=== PATIENT | female | born 1970 | race Caucasian/White ===

== ENCOUNTER 2016-11-05 11:36 | Day surgery (SDC) | payer OTHER ==
[~2016-11-05 11:36] MED LIST: DIAZ5 PO; GABA600T PO; OMEP20TA PO; PERC5TAB12 PO; TRAM50TA PO; ZANA4CAP PO; ZOFR4TAB PO
[2016-11-05] MEDS ORDERED: IODIXANOL 320 MG/ML 50 ML VIAL (for RAD SPEC) ONE (11:37)
[2016-11-05 13:45] VITALS: BP 157/95; PULSE 63; RESP 16; TEMP 98; O2SAT 95
[2016-11-05 14:56] VITALS: BP 157/95; PULSE 63; RESP 20; TEMP 98; O2SAT 95
[2016-11-05] MEDS ORDERED: MILL5PAK (14:56)
[2016-11-05] MEDS ORDERED: BUSP10TA PO (14:56)
[2016-11-05] MEDS ORDERED: LISI-515 PO (14:56)
[2016-11-05] MEDS ORDERED: TRIAMCINOLONE ACETONIDE 40 MG/ML VIAL ONE (15:44)
[2016-11-05] MEDS ORDERED: ROPIVACAINE 1% PF INJ 20 ML AMP ONE (15:44)
[2016-11-05 15:55] VITALS: BP 149/93; PULSE 67; RESP 18; TEMP 98; O2SAT 98
[2016-11-05 16:15] VITALS: BP 138/86; PULSE 67; RESP 18; O2SAT 98
--- NOTE | 2016-11-05 16:26 | RADRPT ---
EXAM DATE/TIME: 11/05/2016 14:11 [facility] COMPARISON: No previous studies available for comparison. INDICATIONS : Meniscus tear. MEDICAL HISTORY : Hypertension. SURGICAL HISTORY : Fusion, cervical. section. Left hip. Partial hysterectomy. Right knee. Breast reduction. ENCOUNTER: Subsequent ACUITY: 1 day PAIN SCORE: 5/10 LOCATION: Right knee TECHNIQUE: Multiplanar, multisequence MRI examination was performed without contrast. FINDINGS: There is no evidence of bone contusion. There is joint space narrowing and marginal osteophyte format ion involving the medial tibiofemoral compartment. The anterior and posterior cruciate ligaments are intact. The medial lateral collateral ligaments are also intact. There is no evidence of meniscal tea r. CONCLUSION: 1. Osteoarthritis involving the medial tibiofemoral compartment. No evidence of meniscal tear Bryant Mcgee MD on November 05, 2016 at 16:13 Board Certified Radiologist. This report was verified electronically.
--- NOTE | 2016-11-05 16:30 | PD.RAD ---
Post Procedure Progress Note Pre Procedure Diagnosis: (1) Ligamentous inflammation Post Procedure Diagnosis: (1) Ligamentous inflammation Procedure Date: Nov 05, 2016 Supervising Radiologist: Bryant Mcgee Plan of Activity See PACS Report for procedural detail/treatment Biopsy Imaging Guidance: Fluoroscopy Side: Right Biopsy Procedure: Other (hip injection for pain) Bryant Mcgee MD Nov 05, 2016 16:30
--- NOTE | 2016-11-29 08:18 | RADRPT ---
EXAM DATE/TIME: 11/05/2016 14:14 [facility] COMPARISON: No previous studies available for comparison. INDICATIONS : Patient with right hip pain in need of steroid injection. MEDICAL HISTORY : HTN, Asthma, GERD, Osteoarthritis, Congenital left hip dysplasia SURGICAL HISTORY : Left hip replacement, C5-C6 surgery ENCOUNTER: Initial ACUITY: >1 year PAIN SCORE: 8/10 LOCATION: Right Hip FLUORO TIME: 0.5 minutes IMAGE SERIES: 1 CONTRAST: 1cc Visipaque (iodixanol) DEVICE: 22 gauge needle was placed into the right hip joint MEDICATIONS: 1.) 1 cc triamcinolone (Kenalog) IA 2.) 4 cc ropivacaine (Naropin) IA 3.) 4 cc Lidocaine IA RESPONSE: Pre procedure pain level was 8/10. Post procedure pain level was 4/10. PROCEDURE : The risks, benefits and alternatives to the procedure were explained and verbal and written consent w as obtained. The site was prepped in sterile fashion. Full sterile technique was used, including ca p, mask, sterile gloves and gown and a large sterile sheet. Hand hygiene and 2% chlorhexidine and/or betadine/alcohol prep was utilized per protocol for cutaneous antisepsis. The skin and subcutaneous tissues were infiltrated with local anesthetic solution. Under sterile conditions and using aseptic technique with fluoroscopic guidance the joint was punctur ed and positive contrast was injected to confirm intra-articular position. Following this, the presc ribed mixture of Kenalog and local anesthetics was injected. The patient tolerated the procedure wel l and there were no complications. CONCLUSION: Uncomplicated therapeutic injection performed under fluoroscopic guidance. Bryant Mcgee MD on November 29, 2016 at 8:16 Board Certified Radiologist. This report was verified electronically.
== END 2016-11-05 16:20 | disposition home or self-care (01) ==
LOC: HROP 11:36 → HRIP 11:45 → HROP 16:20
PROVIDERS: ATTEND Orthopaedic Surgery Sports Medicine
DX: M16.11 Unilateral primary osteoarthritis, right hip (principal); I10 Essential (primary) hypertension
CPT/HCPCS: 73721; J2795; J3301; Q9967; 20610; 77003

== ENCOUNTER 2017-12-17 09:00 | Inpatient (IN) ==
[2018-01-17] MEDS ORDERED: Sodium Chlor 0.9% Inj 250 ML ONE (08:26)
[2018-01-17] MEDS ORDERED: Vancomycin Inj 1,000 MG in Sodium Chlor 0.9% Inj 250 ML IV.SIG SCH (10:00)
[2018-01-17] MEDS ORDERED: SODIUM CHLOR 0.9% IV.SIG SCH (10:00)
[2018-01-17] MEDS ORDERED: ceFAZolin 2 GM Premix Inj 2 GM/50 ML PIGGYBACK IV.SIG SCH (10:00)
[2018-01-17] MEDS ORDERED: TRANEXAMIC ACID IV.SIG SCH (10:00)
[2018-01-17] MEDS ORDERED: BUPIVACAINE P-ARTICULR SCH ×2 (10:00)
[2018-01-17] MEDS ORDERED: [UNRECOGNIZED DRUG - OTHER] P-ARTICULR SCH ×2 (10:00)
[2018-01-17] MEDS ORDERED: BUPIVACAINE LIPOSO 1.3% P-ARTICULR SCH ×2 (10:00)
[2018-01-17] MEDS ORDERED: Bupivacaine/Epi PF 0.25% Inj 20 ML, Bupivacaine Liposo PF 1.3% Inj 20 ML, Sodium Chlor ... P-ARTICULR SCH ×2 (10:00)
[2018-01-17] MEDS ORDERED: EPI P-ARTICULR SCH ×2 (10:00)
[2018-01-17] MEDS ORDERED: Metoprolol Tartrate 25 MG Tablet PO ONE (10:12)
[2018-01-17] MEDS ORDERED: Sodium Chloride 0.9% 2 ML Flush PRN IV.FLUSH (10:14)
[2018-01-17] MEDS ORDERED: Sodium Chlor 0.9% Inj 500 ML IV.SIG SCH (11:00)
[2018-01-17] MEDS ORDERED: Lidocaine PF 1% Inj 5 ML Syringe OTHER ONE (13:19)
[2018-01-17] MEDS ORDERED: Phenylephrine/NS 1000 MCG/10ML Syringe IV.PUSH ONE (13:19)
[2018-01-17] MEDS ORDERED: Succinylcholine Inj 100 MG/5 ML Syringe IV.PUSH ONE (13:19)
[2018-01-17] MEDS ORDERED: Glycopyrrolate Inj 1 MG/5 ML Syringe IV.PUSH ONE (13:19)
[2018-01-17] MEDS ORDERED: diazePAM 5 MG Tablet PO PRN (13:44)
[2018-01-17] MEDS ORDERED: Post-op Orders (for Pharmacy) OTHER STA (13:45)
[2018-01-17] MEDS ORDERED: oxyCODONE/Acetaminophen 10/325 Tablet PO PRN ×2 (13:45)
[2018-01-17] MEDS ORDERED: Bisacodyl 10 MG Supp RECTAL PRN (13:45)
[2018-01-17] MEDS ORDERED: Temazepam 15 MG Capsule PO PRN (13:45)
[2018-01-17] MEDS ORDERED: HYDROmorphone PF Inj 0.5 MG/0.5 ML Syringe IV.PUSH PRN (13:46)
[2018-01-17] MEDS ORDERED: predniSONE 5 MG Tablet PO PRN (15:00)
--- NOTE | 2018-01-17 15:35 | P.OP ---
- Preoperative Diagnosis (1) Osteoarthritis of right hip - Postoperative Diagnosis (1) Osteoarthritis of right hip Date of procedure: 01/17/18 Procedure: Right total hip arthroplasty, direct anterior exposure Anesthesia: GETA Surgeon: Terence Esteves MD Mechanical Engineering Manager: VETO Caldwell Operation and Findings: EBL: 400 cc INDICATION: This patient is a 47-year-old female status post previous left total hip replacement for congenital hip disorder and severe arthritis. She is developing progressive arthritis of the right hip. She has been recalcitrant to conservative care. She presents for surgical NOTE: Vicky Caldwell PA-C was present for the entire surgical procedure as my staffing assistant. In my medical opinion her skill and care was necessary for the proper management of this patient. COMPONENTS: COMPANY: [employer] CUP: [place], 50 mm, 100 series STEM: [place], size 10, standard offset HEAD: Ceramic, 32 mm, +1 Polyethylene liner: 32 mm, neutral PROCEDURE: This patient was brought to the operating room and anesthetized in the supine position. The patient was positioned on the [facility] table with the operative leg extended and the contralateral leg held position. The hip and leg was scrubbed with alcohol followed by Hibiclens followed by ChloraPrep and draped sterilely in the clean air suite. Preoperative fluoroscopic images were utilized. A templating x-ray was obtained and printed to be used during the case. A timeout was done and antibiotics were given within a routine time window. A 4 inch incision was made starting 2 cm distal and 2 cm lateral to the anterior superior iliac spine. The tensor fascia feli fascia was identified and opened longitudinally in line with the incision. Deep retraction allowed good visualization in the interval between the tensor fascia feli and the rectus and this was opened further. The posterior fascia was opened. Crossing vessels were coagulated appropriately. The anterior aspect of the hip capsule was identified. Retractors were placed above and below the capsule. The capsule was opened longitudinally. Stay sutures were utilized creating flaps for the anterior capsule. The femoral neck was cut at the right location and completed with an oscillating saw. The head and neck was removed and taken to the back table. The leg was externally rotated 60 degrees and traction placed on the extremity. The labrum was excised. A portion of the capsule was excised. Visibility was excellent. Retractors were positioned. Starting 6 mm from the final size reamer, we began reaming up to 1 mm from the anticipated size. This was visualized under fluoroscopy. A trial cup was positioned. This also was visualized under fluoroscopy and minor adjustments were made. The final preparation with a 50 mm reamer was utilized. The final cup was positioned in approximately 40 degrees of abduction and 20 degrees of forward flexion. This is visualized under fluoroscopy and was seated into the final position. Position was very satisfactory. A single hole eliminator was positioned followed by the plastic liner. The final solution was excellent. Traction was let off. The leg was brought into neutral rotation. A lifting took was positioned underneath the greater trochanter and proximal femur. The leg was maximally X rotated and the foot drop to the floor across midline. Retractors were positioned. A box osteotome was used to gain entrance into the top of the femur. The canal was probed with a finder to ensure that we are within the canal. Successive broaching up to the final stem size was accomplished. Trial reduction showed excellent balancing. Adjustments were made. The wound was irrigated copiously and the canal irrigated. The final stem was inserted in proper orientation. Trial again was trialed and the final head side was impacted. The hip was reduced and with 60 degrees of external rotation the leg to be dropped to the floor without evidence of anterior subluxation. Intraoperative x-rays were obtained. Local anesthesia was utilized for a field block including posterior capsule, inferior capsule, cephalad capsule, region of the greater trochanter, tensor fascia feli and subcutaneous tissue. The anterior capsule was repaired with interrupted #2 Tycron sutures. The fascia was run with 0 PDS on a loop. Subcutaneous tissue was approximated 2-0 Vicryl suture and skin with running intradermal 3-0 Vicryl followed by benzoin and Steri-Strips. A sterile dressing was applied. The patient was awakened and taken to the recovery room in satisfactory condition FINDINGS: There was severe osteoarthritis of the right hip. The final solution was excellent. There was no complication.
--- NOTE | 2018-01-17 15:41 | XR ---
EXAM DATE: 01/17/2018 3:28 PM EST AGE/SEX: 47 years / Female INDICATIONS: Right anterior hip replacement. CLINICAL DATA: This is the patient's initial encounter. Patient reports that signs and symptoms have been present for 1 day and indicates a pain score of Nonresponsive. MEDICAL/SURGICAL HISTORY: Non-responsive. Non-responsive. COMPARISON: [facility], HIP RIGHT AP ONLY WO AP PELVIS, 07/26/2017. . FINDINGS: The patient is status post right hip replacement with prosthesis in good position. CONCLUSION: There is post right hip replacement with prosthesis in good position. Electronically signed by: Judah Hernandez MD 01/17/2018 3:40 PM EST
[2018-01-17] MEDS ORDERED: *Meperidine Inj 25 MG/ML Vial PERIprocedural Use ONLY ONE (16:15)
[2018-01-17] MEDS ORDERED: fentaNYL Citrate Inj 100 MCG/2 ML Ampul ONE ×2 (16:15)
[2018-01-17] MEDS ORDERED: *HYDROmorphone PF Inj 1 MG/ML Ampul PERIprocedural Use ONLY ONE (17:19)
[2018-01-17] MEDS: Gabapentin 300 MG Capsule PO SCH (18:59)
[2018-01-17] MEDS: ceFAZolin 1 GM Premix Inj 1 GM/50 ML FROZ.PIGGY IV.SIG SCH (20:53)
[2018-01-17] MEDS: Senna/Docusate Sodium 8.6/50 MG Tablet PO SCH (20:54)
[2018-01-17] MEDS: Multivitamin/Minerals Therapeutic Tablet PO SCH (20:54)
[2018-01-17] MEDS ORDERED: Sodium Chloride 0.9% 2 ML Flush BID IV.FLUSH SCH (21:00)
[2018-01-17] MEDS ORDERED: Montelukast 10 MG Tablet PO SCH (21:00)
--- NOTE | 2018-01-17 22:30 | P.DS ---
Date of admission: 01/17/18 07:01 Primary care physician: Ever Cheek Attending physician on discharge: Terence Estevse Anticipated date of discharge: 01/18/18 DS: Diagnosis - Discharge Diagnosis (1) Osteoarthritis of right hip Status: Acute DS: Summary - Time Spent with Patient Total time spent providing and/or coordinating discharge services: Greater than 30 minutes - Quality: VTE Deep Vein Thrombosis/Pulmonary Embolism Present on Admission: No Exam Vital signs: Vital Signs 01/17/18 08:10 01/17/18 16:10 01/17/18 16:15 Temperature 98.7 F 98.0 F Pulse Rate 58 L 80 60 Respiratory Rate 20 16 16 Blood Pressure 121/82 103/53 L 106/51 L Pulse Oximetry 96 97 96 01/17/18 16:30 01/17/18 16:45 01/17/18 17:00 Temperature Pulse Rate 58 L 60 54 L Respiratory Rate 16 16 16 Blood Pressure 94/49 L 98/46 L 99/50 L Pulse Oximetry 96 96 97 01/17/18 17:15 01/17/18 17:30 01/17/18 17:50 Temperature 97.4 F L Pulse Rate 58 L 56 L 54 L Respiratory Rate 16 16 18 Blood Pressure 99/52 L 98/51 L 99/57 L Pulse Oximetry 97 96 97 01/17/18 19:05 Temperature 97.0 F L Pulse Rate 50 L Respiratory Rate 17 Blood Pressure 94/52 L Pulse Oximetry 98 Intake & Output 01/17/18 01/17/18 01/18/18 06:59 18:59 06:59 Intake Total 1907.28 / 1907.28 Output Total 400 / 400 Balance 1507.28 / 1507.28 Weight 78.7 kg Intake: IV 407.28 / 407.28 Cyklokapron Inj 728 MG In NS 107.28 / 107.28 Inj 100 ML @ 200 mls/hr IV.SIG ONCE [facility] Rx#:[id number] Vancomycin Inj 1,000 MG In NS 250 / 250 Inj 250 ML @ 250 mls/hr IV.SIG IRRADIATED FUEL HANDLER [facility] Rx#:[id number] Ancef 2 GM Premix Inj 2 gm In 50 / 50 50 ml @ 100 mls/hr IV.SIG IRRADIATED FUEL HANDLER [facility] Rx#:[id number] Anesthesia Amount 1500 / 1500 Output: Estimated Blood Loss 400 / 400 Other: Date of Last Bowel Movement 01/17/18 Weight On Admission 72.8 kg Results Procedures completed during hospitalization: Right total hip arthroplasty, direct anterior approach Labs on day of discharge: Labs from last 24 hours 01/17/18 01/17/18 08:20 08:15 Blood Type A Positive Antibody Screen Negative MTS Gel Crossmatch See Detail See Detail Bld Prod Order Comment Cancelled - Impressions ITS Impressions Hip X-Ray 01/17/18 00:00 CONCLUSION: There is post right hip replacement with prosthesis in good position. Discharge Plan - Discharge Disposition Patient Disposition: Disch W/Home Health Service - Discharge Condition Condition: Good - Discharge Order Discharge Orders: Discharge Order (Routine); Ordered 01/18/18 Ordered By: Terence Esteves - Physicians Team Primary Care Provider: Ever Cheek Attending Provider: Terence Esteves - Rxs /Orders / Referrals /Forms Prescriptions: New aspirin 81 mg Tablet,Chewable 81 mg PO BID Qty: 60 RF: 0 Continue atorvastatin 20 mg Tablet 20 mg PO DAILY buspirone 10 mg Tablet 10 mg PO BID diazepam 5 mg Tablet 5 mg PO TID-QID PRN (Reason: Anxiety) estradiol 1 mg Tablet 1 mg PO DAILY gabapentin 600 mg Tablet 600 mg PO TID lisinopril 20 mg Tablet 20 mg PO DAILY Medical Marijuana montelukast 10 mg Tablet 10 mg PO QPM omeprazole 20 mg Tablet,Delayed Release (Dr/Ec) 20 mg PO DAILY oxycodone-acetaminophen [Percocet] 5-325 mg Tablet 1 tab PO Q4-6H PRN (Reason: Pain) prednisone 2.5 mg Tablet 2.5 mg PO TID PRN (Reason: Edema) tizanidine 4 mg Capsule 4 mg PO TID PRN (Reason: Muscle Pain) Ambulatory Orders / Order Sets / DME: Adjustable Commode 3-in-1 (1 each) (Routine) Location: Determined by Patient Ordered By: Terence Esteves Walker With Front Wheels (1 each) (Routine) Location: Determined by Patient Ordered By: Terence Esteves Referrals: Ever Cheek [Primary Care Provider] - See Instructions - Post Discharge Care Plan Care Plan Goals: Discharge Care Plan Goals for RIGHT Total Hip Replacement You had a hip replacement surgery. This means your natural hip was replaced with an artificial joint (prosthesis). You may be recovering at home or in a rehabilitation facility. Either way, you must take care of your new hip. Here are some goals to help you heal well. Directions to Meet your Goals: 1. Activity & Exercises: * Take pain medicine as directed by your doctor. * Dont drive until your doctor says its OK. And never drive while taking opioid pain medicine. * Wear the support stockings you were given in the hospital as directed by your surgeon. * Dont sit for more than 30 to 45 minutes at one time. * Dont lean forward while sitting. * Dont cross your legs. * Keep your feet flat on the floor. Dont turn your foot or leg inward. This stresses your hip joint. * Use an elevated toilet seat for 6 weeks after surgery. * Nap if you are tired, but dont stay in bed all day. * Sit on a firm cushion when you ride in a car and avoid sitting too low. Try not to bend your hip too much when getting in and out of the car. 2. Prevent Falls/Injury: * Follow your doctors orders regarding how much weight to put on the affected leg. * Dont bend at the hip when you bend over. Don't bend at the waist to put on socks and shoes. And avoid picking up items from the floor. * Use a cane, crutches, a walker, or handrails until your balance, flexibility, and strength improve. And remember to ask for help from others when you need it. * Free up your hands so that you can use them to keep balance. Use a polo pack , apron, or pockets to carry things. * Arrange your household to keep the items you need handy. Keep everything else out of the way. * Remove items that may cause you to fall, such as throw rugs and electrical cords. * Use nonslip bath mats, grab bars, an elevated toilet seat, and a shower chair in your bathroom * Sit on a shower stool or chair when you shower to keep from falling. 3. Precautions: * Prevent infection. Any infection will need to be treated immediately. Call your doctor right away if you think you might have an infection. * Tell your dentist that you have an artificial joint and take antibiotics as prescribed before any dental work. * Tell all your healthcare providers about your artificial joint before any medical procedure. * Maintain a healthy weight. Get help to lose any extra pounds. Added body weight puts stress on the joints. 4. Incision Care: * Prevent infection by washing your hands often. If an infection occurs, it will need to be treated right away. * Call your doctor right away if you think you may have an infection. Symptoms include a fever or an incision that leaks white, green, or yellow fluid. * Don't soak your incision in water until your doctor says its OK. This means no hot tubs, bathtubs, or swimming pools. * Follow your doctor's instructions for changing the dressing. * Dont rub the incision, or apply creams or lotions to it. * If you notice any redness or drainage around the bandage site, contact your surgeon's office immediately. 5. Follow-Up: Do Not miss your follow-up appointment. Keep up with all your appointments and yearly check ups When to call your doctor: Call your doctor right away if you have: Hip pain gets worse Pain or swelling in your calf or leg not related to your incision Tenderness or redness in your calf Fever of 100.4F (38C) or higher, or as directed by your healthcare provider Shaking chills Swelling or redness at the incision site gets worse Fluid draining from the incision Call 911: Call 911 right away if you have: Chest pain Shortness of breath Any pain or tenderness in your calf
[2018-01-18] MEDS: ceFAZolin 1 GM Premix Inj 1 GM/50 ML FROZ.PIGGY IV.SIG SCH ×2 (01:17→08:00)
[2018-01-18 06:19] LABS: Hematocrit 34.8 % (35.0-46.0)
--- NOTE | 2018-01-18 08:03 | P.PNOP ---
Subjective Interval history: Doing very well. Pain well controlled. She feels that Percocet 10 is too strong. Usually takes Percocet 5 at home for chronic pain. Ambulating independently Physical Exam Vital signs: Vital Signs 01/17/18 08:10 01/17/18 16:10 01/17/18 16:15 Temperature 98.7 F 98.0 F Pulse Rate 58 L 80 60 Respiratory Rate 20 16 16 Blood Pressure 121/82 103/53 L 106/51 L Pulse Oximetry 96 97 96 01/17/18 16:30 01/17/18 16:45 01/17/18 17:00 Temperature Pulse Rate 58 L 60 54 L Respiratory Rate 16 16 16 Blood Pressure 94/49 L 98/46 L 99/50 L Pulse Oximetry 96 96 97 01/17/18 17:15 01/17/18 17:30 01/17/18 17:50 Temperature 97.4 F L Pulse Rate 58 L 56 L 54 L Respiratory Rate 16 16 18 Blood Pressure 99/52 L 98/51 L 99/57 L Pulse Oximetry 97 96 97 01/17/18 19:05 01/17/18 20:55 01/17/18 23:38 Temperature 97.0 F L 98.2 F Pulse Rate 50 L 50 L Respiratory Rate 17 17 17 Blood Pressure 94/52 L 105/54 L Pulse Oximetry 98 98 01/18/18 04:30 Temperature 97.6 F Pulse Rate 60 Respiratory Rate 17 Blood Pressure 119/58 L Pulse Oximetry 99 Intake & Output 01/17/18 01/18/18 01/18/18 18:59 06:59 18:59 Intake Total 1907.28 / 1907.28 980 / 980 Output Total 400 / 400 Balance 1507.28 / 1507.28 980 / 980 Weight 78.7 kg 73.4 kg Intake: IV 407.28 / 407.28 500 / 500 LR 1000 mL Inj 1,000 ML @ 80 400 / 400 mls/hr IV.CONT .[id number] [facility] Rx# :[id number] Cyklokapron Inj 728 MG In NS 107.28 / 107.28 Inj 100 ML @ 200 mls/hr IV.SIG ONCE [facility] Rx#:[id number] Vancomycin Inj 1,000 MG In NS 250 / 250 Inj 250 ML @ 250 mls/hr IV.SIG COIL MAKER [facility] Rx#:[id number] Ancef 1 GM Premix Inj 1 gm In 100 / 100 50 ml @ 100 mls/hr IV.SIG Q6H [facility] Rx#:[id number] Ancef 2 GM Premix Inj 2 gm In 50 / 50 50 ml @ 100 mls/hr IV.SIG COIL MAKER [facility] Rx#:[id number] Oral 480 / 480 Anesthesia Amount 1500 / 1500 Output: Estimated Blood Loss 400 / 400 Other: # Voids 3 Date of Last Bowel Movement 01/17/18 # Bowel Movements 0 Weight On Admission 72.8 kg Narrative: Dressing with mild drainage. Mild swelling. Mild ecchymosis. Motor exam distally normal. No calf tenderness Results - Labs CBC & Chem 7: 01/18/18 05:40 Laboratory Results - last 24 hr 01/17/18 01/17/18 01/18/18 08:15 08:20 05:40 Hgb 12.0 Hct 34.8 L Blood Type A Positive Antibody Screen Negative MTS Gel Crossmatch See Detail See Detail Bld Prod Order Comment Cancelled - Imaging Impressions Hip X-Ray 01/17/18 00:00 CONCLUSION: There is post right hip replacement with prosthesis in good position. - Procedures Right total hip arthroplasty, direct anterior approach Assessment and Plan - Problem List (1) Osteoarthritis of right hip Code(s): M16.11 - Unilateral primary osteoarthritis, right hip Status: Acute - Assessment and Plan Osteoarthritis right hip. SURGERY: Right QUE, anterior: POD #1. PLAN: Patient has pain medications at home. We will decrease to Percocet 5 as needed. Discharge to home today. Home health care. Home physical therapy. Aspirin for anticoagulation. Weightbearing as tolerated. Change dressing before discharge.
[2018-01-18 08:30] VITALS: RESP 16
[2018-01-18] MEDS ORDERED: Pantoprazole Sodium 20 MG DR Tablet PO SCH (09:00)
[2018-01-18] MEDS ORDERED: Lisinopril 20 MG Tablet PO SCH (09:00)
[2018-01-18] MEDS ORDERED: Estradiol 1 MG Tablet PO SCH (09:00)
[2018-01-18] MEDS: Gabapentin 300 MG Capsule PO SCH ×2 (09:01→12:46)
[2018-01-18] MEDS: Senna/Docusate Sodium 8.6/50 MG Tablet PO SCH (09:01)
[2018-01-18] MEDS: Multivitamin/Minerals Therapeutic Tablet PO SCH (09:01)
[2018-01-18 12:45] VITALS: BP 105/57; PULSE 78; TEMP 98.4; O2SAT 98
--- NOTE | 2018-01-18 13:17 | P.DCO ---
- Physical Therapy Physical Therapy: Safety evaluation Hip: Total hip, Protocol: Right, Progress to weight bearing Right Lower Extremity Weight Bearing: Weight bearing as tolerated Additional instructions: R QUE, anterior protocol. PT 4x/week for 2 weeks. WBAT. Walker assist as needed. - Nursing RN days per week: 3 x week(s): 1 Dressing changes: Do not change dressing Additional instructions: RN 3x/week for 1 week. Vitals assessment. Dressing assessment - do not change unless saturated. - Certification Need for Home Health services: I have seen patient Lilliam Alvarado on 01/18/18. My clinical findings support the need for the requested home health care services because: Need for Home Health Services: Deconditioned with increased weakness, High risk of falls Homebound Certification: I certify that my clinical findings support that this patient is homebound because: Homebound Certification: Post-op weakness, Unsteady gait/balance
== END 2018-01-18 15:37 | disposition home health service (06) ==
LOC: HSDI 01-17 07:01 → N06 01-17 17:53
PROVIDERS: ADMIT Orthopaedic Surgery Orthopaedic Surgery of the Spine; ATTEND Orthopaedic Surgery Orthopaedic Surgery of the Spine